=== PATIENT | male | born 1960 | race Caucasian/White ===

== ENCOUNTER 2018-12-03 14:46 | Emergency (ER) | payer OTHER ==
[~2018-12-03] VITALS: Ht 190.5 cm; Wt 86.2 kg
[2018-12-03] MEDS ORDERED: VANCOMYCIN 1GM/NS 250 ML 250 ML IV ONE (15:15)
[2018-12-03] MEDS ORDERED: CLINDAMYCIN PHOS 600 MG/ 4 ML VIAL IM ONE (15:30)
[2018-12-03 15:40] VITALS: BP 167/98
[2018-12-03] MEDS ORDERED: TETANUS/DIPHTHERIA TOX ADULT 0.5 ML SYR IM ONE (15:45)
== END 2018-12-03 15:45 | disposition home or self-care (01) ==
LOC: FSED 14:46
DX: L02.416 Cutaneous abscess of left lower limb (principal); L03.116 Cellulitis of left lower limb
CPT/HCPCS: 10060; 90471; 90714; 99284; J3370